=== PATIENT | female | born 1930 | race African-American/Black ===

== ENCOUNTER → 2016-12-31 | Outpatient (CLI) | payer MEDICARE, OTHER ==
--- NOTE | 2017-01-01 16:26 | BD ---
EXAMINATION TYPE: MG DEXA axial skeleton. DATE OF EXAM: 12/31/2016 COMPARISON: NONE CLINICAL HISTORY: Postmenopausal female Height: 5 ft 4 1/2IN Weight: 166 FRAX RISK QUESTIONS: Alcohol (3 or more units per day): NO Family History (Parent hip fracture): NO Glucocorticoids (More than 3mos): NO (Ex: prednisone, prednisolone, methylprednisolone, dexamethasone, and hydrocortisone). History of Fracture in Adulthood: NO Secondary Osteoporosis: 1. Type 1 Diabetes: NO 2. Hyperthyroidism: NO 3. Menopause before 45: NO 4. Malnutrition: NO 5. Chronic liver disease: NO Rheumatoid Arthritis: NO Current Tobacco Use: NO RISK FACTORS HISTORY OF: Active: YES Postmenopausal woman: UNSURE BETWEEN 40-50 HEIGHT LOSS OF MORE THAN 2 INCHES MEDICATIONS: Additional Medications: NORVASC, CALCIUM, LASIX Additional History: EXAM MEASUREMENTS: Bone mineral densitometry was performed using the [employer] System. Bone mineral density as measured about the Lumbar spine is: ----- L1-L4(G/cm2): 0.818 T Score Values are as follows: ----- L2: -4.2 ----- L3: -2.5 ----- L4: -2.1 ----- L1-L4: -3.0 Bone mineral density has: Decreased -14.9% since study of: 2008 Bone mineral density about the R hip (g/cm2): 0.620 Bone mineral density about the L hip (g/cm2): 0.670 T Score values are as follows: -----R Neck: -3.0 -----L Neck: -2.7 -----R Total: -3.4 -----L Total: Bone mineral density has: Increased 4.4% since study of: 2008 IMPRESSION: Osteoporosis (T Score less than -2.5) as noted by T Score values at the There is increased fracture risk and therapy is usually indicated based on age. Re-Screen 1-2 years. NOTE: T-SCORE=SD OF THE YOUNG ADULT MEAN.
== END | disposition home or self-care (01) ==
LOC: RADBDWWP 15:47
PROVIDERS: ATTEND Family Medicine
DX: M81.0 Age-related osteoporosis without current pathological fracture (principal)
CPT/HCPCS: 77080

== ENCOUNTER → 2017-01-23 | Outpatient (CLI) | payer MEDICARE, OTHER ==
--- NOTE | 2017-01-24 10:50 | MM ---
Reason for exam: screening (asymptomatic). Last mammogram was performed 1 year ago. History: Patient is postmenopausal. Cyst aspiration of the left breast, June 2010. Excisional biopsy of the left breast, June 15, 2008. Benign excisional biopsy of the right breast. Physical Findings: A clinical breast exam by your physician is recommended on an annual basis and results should be correlated with mammographic findings. MG Screening Mammo w CAD Bilateral CC and MLO view(s) were taken. Prior study comparison: January 23, 2016, bilateral MG 3d screening mammo w/cad. May 21, 2010, bilateral digital screening mammo w/CAD. The breast tissue is extremely dense which could obscure a lesion on mammography. Benign calcifications. No significant changes when compared with prior studies. ASSESSMENT: Benign, BI-RAD 2 RECOMMENDATION: Routine screening mammogram of both breasts in 1 year.
== END | disposition home or self-care (01) ==
LOC: RADMAMWWP 10:48
PROVIDERS: ATTEND Family Medicine
DX: Z12.31 Encounter for screening mammogram for malignant neoplasm of breast (principal)

== ENCOUNTER → 2018-02-06 | Outpatient (CLI) | payer MEDICARE, OTHER ==
--- NOTE | 2018-02-09 10:14 | MM ---
Reason for exam: screening (asymptomatic). Last mammogram was performed 1 year ago. History: Patient is postmenopausal. Cyst aspiration of the left breast, June 2010. Excisional biopsy of the left breast, June 15, 2008. Benign excisional biopsy of the right breast. Physical Findings: A clinical breast exam by your physician is recommended on an annual basis and results should be correlated with mammographic findings. MG 3D Screening Mammo W/Cad Bilateral CC, MLO, and XCCL view(s) were taken. Prior study comparison: January 23, 2017, bilateral MG screening mammo w CAD. January 23, 2016, bilateral MG 3d screening mammo w/cad. The breast tissue is heterogeneously dense. This may lower the sensitivity of mammography. Finding #1: There is a 9 mm equal density (isodense), circumscribed round mass in the upper outer quadrant, posterior position of the left breast with internal calcifications. Finding #2: There are typically benign vascular calcifications in both breasts. No significant changes in finding since January 23, 2017 and January 23, 2016. ASSESSMENT: Benign, BI-RAD 2 RECOMMENDATION: Routine screening mammogram of both breasts in 1 year.
== END | disposition home or self-care (01) ==
LOC: RADMAMWWP 12:54
PROVIDERS: ATTEND Family Medicine
DX: Z12.31 Encounter for screening mammogram for malignant neoplasm of breast (principal)
CPT/HCPCS: 77063; 77067

== ENCOUNTER → 2019-04-30 | Outpatient (CLI) | payer MEDICARE, OTHER ==
--- NOTE | 2019-04-30 10:11 | US ---
EXAMINATION TYPE: US kidneys/renal and bladder DATE OF EXAM: 04/30/2019 COMPARISON: US 12/18/2015 CLINICAL HISTORY: N18.3 chronic kidney disease stage 3. EXAM MEASUREMENTS: Right Kidney: 8.9 x 3.4 x 4.1 cm Left Kidney: 7.3 x 3.3 x 4.1 cm Right Kidney: No hydronephrosis or masses seen. Measuring small Left Kidney: No hydronephrosis or masses seen. Measuring small Bladder: Not distended Bilateral Jets seen: No There is no evidence for hydronephrosis at this point in time. No nephrolithiasis is seen. No charlene s are identified. Bladder suboptimally evaluated due to poor distention. IMPRESSION: No hydronephrosis is seen currently. No significant change from prior.
== END | disposition home or self-care (01) ==
LOC: RADUSWWP 09:30
PROVIDERS: ATTEND Nurse Practitioner Family
DX: N18.3 Chronic kidney disease, stage 3 (moderate) (principal)
CPT/HCPCS: 76770

== ENCOUNTER → 2019-06-04 | Outpatient (CLI) | payer MEDICARE, OTHER ==
--- NOTE | 2019-06-04 10:11 | US ---
EXAMINATION TYPE: US abdomen limited DATE OF EXAM: 06/04/2019 COMPARISON: CT & renal US CLINICAL HISTORY: Right upper quad pain R10.11. Pt states generalized ABD pain and a feeling a "knot " midline/right ABD, GB removed EXAM MEASUREMENTS: Liver Length: 15.9 cm CBD: 0.6 cm Right Kidney: 9.0 x 3.6 x 4.0 cm Pancreas: wnl, tail obscured by overlying bowel gas Liver: "Lobulation" right superior lobe near right kidney Gallbladder: Surgically absent Evidence for sonographic Steward's sign: No CBD: wnl Right Kidney: wnl No abnormality visualized at area pt feels a "knot" IMPRESSION: No distinct abnormality seen.
== END | disposition home or self-care (01) ==
LOC: RADUSWWP 07:35
PROVIDERS: ATTEND Family Medicine
DX: R10.11 Right upper quadrant pain (principal)
CPT/HCPCS: 76705